=== PATIENT | female | born 1945 | race Caucasian/White ===

== ENCOUNTER 2024-12-23 10:40 | Outpatient (AMB) | payer MEDICARE, OTHER, SELFPAY ==
--- NOTE | 2024-12-23 10:50 | MHC.OFFVIS ---
Intake Visit Reasons: 2m Allergies No Known Allergies Allergy (Verified 12/16/24 07:48) HPI Comments Details: 79 yo LH woman with a parkinsonian disorder, could be dementia with Lewy bodies (With no h/o psychiatric disease until 2021 when after surgery for endometriosis she developed depression and suicidal ideation and was admitted at [facility]. Around that time, her brother who she was close to. Now she was at home and living with her boyfriend who has known her for decades. She denied any problem with memory or bladder control. Apparently, her driving recently became erratic and he has curtailed her to drive. No recent hallucinations or delusions. No significant anxiety or paranoia type of features. Her clinical situation was not fluctuating on day by day basis. Her mood was depressed except when she was talking to her daughter.). She is presenting for medication management. She has difficulties with walking and hydration, possibly linked to her current medications. Historically, she has been treated for schizophrenia with Risperidone and for depression and anxiety with pharmacologic interventions including Duloxetine and Bupropion. Her motivation and energy levels reportedly remain low despite this treatment. The patient's psychiatrist has managed her medication regimen, which has been difficult for her to track and adjust independently due to a lack of communication with healthcare providers. The patient has a history of schizophrenia managed with Risperidone. She is currently stable, with no recent psychotic episodes. Her depressive symptoms are treated with Duloxetine and Bupropion, but her recent adjustment involves a reduced Duloxetine dose to improve energy levels and decrease fatigue. The patient is being treated for what might be essential tremor with Carbidopa-Levodopa, which she currently takes twice daily. [facility] Medical History (Updated 12/23/24 @ 10:52 by Stephane Bernard MD) Cerebral microvascular disease Review of Systems Const Details: - Musculoskeletal: Reports difficulty walking. - General: Reports decreased hydration. - Neurological: Reports prior hallucinations managed with medication; history of tremor. - Psychological: Reports decreased motivation; on medication for mood and anxiety. - Gastrointestinal, Cardiovascular, Respiratory, Genitourinary, Dermatological, Endocrine, Hematologic/Lymphatic, Immunological: Not discussed. Physical Exam Neuro Other: Alert and awake with normal spontaneity of speech fluency comprehension and flat affect. There was mild left hand resting tremor. There was mild generalized bradykinesia. Walking is slow and slightly cautious. Speech is normal. Assessment & Plan Assessment & Plan (1) Parkinsonism: Comment: MRI brain WWO at [facility] in Apr 2024: Mild diff atrophy, mild MVD Code(s): G20.C - Parkinsonism, unspecified Category: Medical Qualifiers: Parkinsonism type: secondary Parkinsonism Secondary Parkinsonism type: unspecified secondary Qualified Code(s): G21.9 - Secondary parkinsonism, unspecified Plan Impression: Parkinsonism with behavioral symptoms suggestive of probably Lewy body pathology Rec: a: Decrease duloxetine to 60mg one at night b: Buproprion 75mg one in am c: Carbidopa/levodopa 25/100 one in am and noontime d: Decreae risperidone to half of 1mg tab at night Coding Level of Care Code Est Pt Level 4 (21690) Diagnoses Secondary parkinsonism, unspecified secondary Parkinsonism type G21.9 Parkinsonism type: secondary Parkinsonism Secondary Parkinsonism type: unspecified secondary
--- OUTSIDE RECORDS SUMMARY | 2024-12-23 12:11 | XMS_ITS | Clinical Summary ---
Author Organization [address] [facility] Address [address] [place] [address] Phone Care Team Providers Care Wirer Helper Name Role Phone MagdiElio Primary Care Provider [phone] Social History Tobacco Use Types Packs/Day Years Used Date Smoking Tobacco: Never Assessed Comments Unknown Sex and Gender Information Value Date Recorded Sex Assigned at Not on file Legal Sex Female 3:28 AM EST Gender Identity Not on file Sexual Orientation Not on file Plan of Treatment Health Maintenance Due Date Last Done Comments DTaP,Tdap,and Td Vaccines (1 - Tdap) 1965 Pneumococcal Vaccine: 50+ Years (1 of 1 - PCV) 1996 Zoster Vaccines (1 of 2) 1996 RSV Immunization Adult Patients (1 - 1-dose 75+ series) 2021 Falls Risk Assessment 04/07/2022 Hepatitis C Screening 04/07/2022 Medicare Annual Wellness Visit 04/07/2022 Osteoporosis Screening (Bone Density Screening) 04/07/2022 Social Influencers of Health Screening 04/07/2022 COVID-19 Vaccine (2 - 2023-2 5 season) 2024 04/14/2021 Depression Screening 05/05/2024 Influenza Vaccine (#1) 2025 , 04/10/2023, 03/08/2022 Hypertension/CHF/CAD Annual BMP Blood Test 11/23/2025 11/23/2024, 03/23/2024 Cholesterol Screening (Lipid Panel) 11/23/2029 11/23/2024, 03/23/2024 HIB Vaccines Aged Out No longer eligi ble based on patient's age to complete this topic HPV Vaccines Aged Out No longer eligi ble based on patient's age to complete this topic Hepatitis A Vaccines Aged Out No long er eligible based on patient's age to complete this topic Hepatitis B Vaccines Aged Out No long er eligible based on patient's age to complete this topic IPV Vaccines Aged Out No longer eligi ble based on patient's age to complete this topic MMR Vaccines Aged Out No longer eligi ble based on patient's age to complete this topic Meningococcal ACWY Vaccine Aged Out N o longer eligible based on patient's age to complete this topic Meningococcal B Vaccine Aged Out No l onger eligible based on patient's age to complete this topic RSV Immunization Patients Under 20 months Aged Out No longer eligible b ased on patient's age to complete this topic Varicella Vaccines Aged Out No longer eligible based on patient's age to complete this topic Procedures Procedure Name Priority Date/Time Associated Diagnosis Comments CBC WITH AUTO DIFFERENTIAL Routine 11/23/2024 2:53 PM EDT Hyperlipemia Orthostasis COMPREHENSIVE METABOLIC PANEL Routine 11/23/2024 2:53 PM EDT Hyperlipemia Orthostasis CBC AND DIFFERENTIAL Routine 11/23/2024 2:53 PM EDT Hyperlipemia Orthostasis THYROID STIMULATING HORMONE Routine 11/23/2024 2:53 PM EDT Hyperlipemia Orthostasis CREATINE KINASE Routine 11/23/2024 2:53 PM EDT Hyperlipemia Orthostasis LIPID PANEL WITH REFLEX TO DIRECT LDL Routine 11/23/2024 2:53 PM EDT Hyperlipemia Orthostasis from Last 3 Months Results * Lipid panel with reflex to direct LDL (11/23/2024 2:53 PM EDT) Cholesterol 141 0 - 200 mg/dL LAB CHEMISTRY METHOD 11/23/2024 7:40 PM EDT [facility] Triglycerides 113 0 - 150 mg/dL LAB CHEMISTRY METHOD 11/23/2024 7:40 PM EDT [facility] HDL 51 >=40 mg/dL LAB CHEMISTRY METHOD 11/23/2024 7:40 PM EDT [facility] LDL Calculated 67 0 - 100 mg/dL LAB CHEMISTRY METHOD 11/23/2024 7:40 PM EDT [facility] VLDL Cholesterol Gerardo 22.6 mg/dL LAB CHEMISTRY METHOD 11/23/2024 7:40 PM EDT [facility] Non HDL Chol. (LDL+VLDL) 90 <145 mg/dL LAB CHEMISTRY METHOD 11/23/2024 7:40 PM EDT [facility] Chol/HDL Ratio 2.8 0.0 - 4.4 LAB CHEMISTRY METHOD 11/23/2024 7:40 PM EDT [facility] Blood Venous blood specimen / Unknown Venipuncture / Unknown 11/23/2024 2:53 PM EDT 11/23/2024 2:53 PM EDT Verito Jo INSTALLATION TECHNICIAN LAB BLOOD ORDERABLES Fi nal Result [facility] [address] [place] [address], * (ABNORMAL) CBC auto differential (11/23/2024 2:53 PM EDT) WBC 6.8 4.8 - 10.8 K/mcL LAB HEMETOLOGY METHOD 11/23/2024 7:44 PM EDT [facility] RBC 3.80 3.80 - 4.80 M/mcL LAB HEMETOLOGY METHOD 11/23/2024 7:44 PM EDT [facility] Hemoglobin 11.9 11.5 - 16.0 g/dL LAB HEMETOLOGY METHOD 11/23/2024 7:44 PM EDT [facility] Hematocrit 37.2 35.0 - 47.0 % LAB HEMETOLOGY METHOD 11/23/2024 7:44 PM EDT [facility] MCV 98.9(H) 79.0 - 98.0 FL LAB HEMETOLOGY METHOD 11/23/2024 7:44 PM EDT [facility] MCH 31.6 27.0 - 32.0 pcg LAB HEMETOLOGY METHOD 11/23/2024 7:44 PM EDT [facility] MCHC 32.0 32.0 - 37.0 g/dL LAB HEMETOLOGY METHOD 11/23/2024 7:44 PM EDT [facility] RDW 12.9 11.0 - 15.0 % LAB HEMETOLOGY METHOD 11/23/2024 7:44 PM EDT [facility] Platelets 273 130 - 400 K/mcL LAB [facility]OLOGY [facility] MPV 8.9 7.0 - 11.0 FL LAB HEMETOLOGY METHOD 11/23/2024 7:44 PM EDT [facility] NRBC 0.0 <1.0 % LAB HEMETOLOGY METHOD 11/23/2024 7:44 PM EDT [facility] NRBC Absolute 0.00 <0.10 K/mcL LAB HEMETOLOGY METHOD 11/23/2024 7:44 PM [facility] Neutrophils Relative 69.0 % LAB HEMETOLOGY METHOD 11/23/2024 7:44 PM EDT [facility] Lymphocytes Relative 24.6 % LAB [facility]EMETOLOGY METHOD [facility]/23[facility]24 [facility] Monocytes Relative 4.9 % LAB [facility]EMETOLOGY METHOD 11/23[facility]2024 7[facility] Eosinophils Relative 0.9 % LAB HEMETOLOGY METHOD 11/23/2024 7:44 PM [facility] Basophils Relative 0.3 % LAB HEMETOLOGY METHOD 11/23/2024 7:44 PM EDT [facility] Immature Granulocytes Relative 0.3 % LAB HEMETOLOGY METHOD 11/23/2024 7:44 PM EDT [facility] Neutrophils Absolute 4.66 1.50 - 7.00 K/[facility] LAB HEMETOLOGY METHOD 11/23/2024 7:44 PM EDT [facility] Lymphocytes Absolute 1.66 1.00 - 5.00 K/mcL LAB HEMETOLOGY METHOD 11/23/2024 7:44 PM EDT [facility] Monocytes Absolute 0.33 0.20 - 1.00 K/mcL LAB HEMETOLOGY METHOD 11/23/2024 7:44 PM EDT [facility] Eosinophils Absolute 0.06 0.00 - 0.50 K/[facility] LAB HEMETOLOGY METHOD 11/23/2024 7:44 PM EDT [facility] Basophils Absolute 0.02 0.00 - 0.20 K/mcL LAB HEMETOLOGY METHOD 11/23/2024 7:44 PM EDT [facility] Immature Granulocytes Absolute 0.02 0.00 - 0.03 K/mcL LAB HEMETOLOGY METHOD 11/23/2024 7:44 PM EDT [facility] Blood Venous blood specimen / Unknown Venipuncture / Unknown 11/23/2024 2:53 PM EDT 11/23/2024 2:53 PM EDT us Verito Jo NP LAB BLOOD ORDERABLES Fi nal Result [facility] [address] [place] [address], * Thyroid stimulating hormone (11/23/2024 2:53 PM EDT) TSH 2.24 0.40 - 4.00 mcIU/mL LAB CHEMISTRY METHOD 11/23/2024 8:17 PM EDT [facility] Blood Venous blood specimen / Unknown Venipuncture / Unknown 11/23/2024 2:53 PM EDT 11/23/2024 2:53 PM EDT Verito Jo INSTALLATION TECHNICIAN LAB BLOOD ORDERABLES Fi nal Result [facility] [address] [place] [address], [place] [phone] * Creatine kinase (11/23/2024 2:53 PM EDT) Pathologist [facility] Total CK 61 22 - 269 unit/L LAB CHEMISTRY METHOD 11/23/2024 7:40 PM EDT [facility] Blood Venous blood specimen / Unknown Venipuncture / Unknown 11/23/2024 2:53 PM EDT 11/23/2024 2:53 PM EDT Verito Jo INSTALLATION TECHNICIAN LAB BLOOD ORDERABLES Fi nal Result Performing Organization Address City/[facility]/ZIP Co de Phone Number [facility] [address] [place] [address], [place] [phone] * (ABNORMAL) Comprehensive metabolic panel (11/23/2024 2:53 PM EDT) Pathologist [facility] Sodium 138 133 - 145 mmol/L LAB CHEMISTRY METHOD 11/23/2024 7:40 PM EDT [facility] Potassium 4.2 3.5 - 5.5 mmol/L LAB CHEMISTRY METHOD 11/23/2024 7:40 PM EDT [facility] Chloride 103 96 - 110 mmol/L LAB CHEMISTRY METHOD 11/23/2024 7:40 PM EDT [facility] CO2 32 21 - 32 mmol/L LAB CHEMISTRY METHOD 11/23/2024 7:40 PM EDT [facility] Anion Gap 3 3 - 11 LAB CHEMISTRY METHOD 11/23/2024 7:40 PM [facility] Glucose 101(H) 70 - 100 mg/dL LAB CHEMISTRY METHOD 11/23/2024 7:40 PM [facility] BUN 15 5 - 25 mg/dL LAB CHEMISTRY METHOD 11/23/2024 7:40 PM [facility] Creatinine 0.80 0.50 - 1.10 mg/dL LAB CHEMISTRY METHOD 11/23/2024 7:40 PM [facility] eGFR 76 >=60 mL/min/1. 73m2 LAB CHEMISTRY METHOD 11/23/2024 7:40 PM [facility] Comment:Calculation based on the Chronic Kidney Disease Epidemiology Collaboration (CKD-EPI) equation refit without adjustment for race. BUN/Creatinine Ratio 18.8 LAB CHEMISTRY METHOD 11/23/2024 7:40 PM [facility] Calcium 9.1 8.5 - 10.5 mg/dL LAB CHEMISTRY METHOD 11/23/2024 7:40 PM [facility] AST (SGOT) 8(L) 10 - 42 unit/L LAB CHEMISTRY METHOD 11/23/2024 7:40 PM [facility] ALT (SGPT) 12 10 - 60 unit/L LAB CHEMISTRY METHOD 11/23/2024 7:40 PM [facility] Alkaline Phosphatase 63 42 - 121 unit/L LAB CHEMISTRY METHOD 11/23/2024 7:40 PM [facility] Total Protein 6.1 6.0 - 8.0 g/dL LAB CHEMISTRY METHOD 11/23/2024 7:40 PM [facility] Albumin 3.8 3.2 - 5.0 g/dL LAB CHEMISTRY METHOD 11/23/2024 7:40 PM [facility] Total Bilirubin 0.3 0.0 - 1.4 mg/dL LAB CHEMISTRY METHOD 11/23/2024 7:40 PM EDT [facility] Blood Venous blood specimen / Unknown Venipuncture / Unknown 11/23/2024 2:53 PM EDT 11/23/2024 2:53 PM EDT us Verito Jo INSTALLATION TECHNICIAN LAB BLOOD ORDERABLES Fi nal Result [facility] [address] [place] [address], from Last 3 Months Insurance MEDICARE [facility] JOANA MCFADDEN [id number] Care Teams Wirer Helper Relationship Specialty Start Date End Date Elio Fairbanks DO [address] [place] [phone] PCP - General Internal Medicine 05/25/18
--- OUTSIDE RECORDS SUMMARY | 2024-12-23 12:11 | XMS_ITS | Clinical Summary ---
Author Organization [facility] Address [address] [place] [address] Care Team Providers Care Jordan Man Name Role Phone Elio Fairbanks DO Primary Care Provider [phone] Social History Tobacco Use Types Packs/Day Years Used Date Smoking Tobacco: Never Assessed Sex and Gender Information Value Date Recorded Sex Assigned at Not on file Gender Identity Not on file Sexual Orientation Not on file Plan of Treatment Health Maintenance Due Date Last Done Comments Hepatitis C Screening 1945 COVID-19 Vaccine (#1) 06/05/1946 Depression Screening 1958 Preventative Health Evaluation 1964 DTap / Tdap / Td (1 - Tdap) 1965 Shingrix-Zoster Vaccine (1 of 2) 1996 Fall Risk Assessment 12/04/2011 Osteoporosis Screening (DEXA Scan) 12/04/2011 Pneumococcal Vaccine (1 of 1 - PCV) 12/04/2011 RSV Adult > 60+ Yrs or Pregn ant (1 - 1-dose 75+ series) 2021 Influenza Vaccine (#1) 2025 Hepatitis B Vaccines Aged Out No long er eligible based on patient's age to complete this topic RSV Ped < 20 months Aged Out No longe r eligible based on patient's age to complete this topic Care Teams Jordan Man Relationship Specialty Start Date End Date Elio Fairbanks DO [address] [place] [id number] PCP - General Internal Medicine 04/11/20
== END 2024-12-23 11:05 | disposition home or self-care (01) ==
LOC: HO.HSM 10:40
PROVIDERS: PCP Internal Medicine; Referring Provider Internal Medicine; Visit Provider Psychiatry & Neurology Neurology
DX: G21.9 Secondary parkinsonism, unspecified (principal)
CPT/HCPCS: 99214

== ENCOUNTER → 2024-12-23 10:40 | Outpatient (BNVA) | payer MEDICARE, OTHER, SELFPAY | PROVIDERS: PCP Internal Medicine; Referring Provider Internal Medicine; Visit Provider Psychiatry & Neurology Neurology | DX: G21.9 Secondary parkinsonism, unspecified (principal); Z79.899 Other long term (current) drug therapy | CPT/HCPCS: 99212 ==

== ENCOUNTER 2025-01-17 11:08 | Outpatient (AMB) | payer MEDICARE, OTHER, SELFPAY ==
--- NOTE | 2025-01-17 11:25 | A.OFFVIS_ITS ---
Intake Visit Reasons: MED REVIEW Allergies No Known Allergies Allergy (Verified 12/16/24 07:48) HPI Comments Details: 79 yo LH woman with a parkinsonian disorder, could be dementia with Lewy bodies (With no h/o psychiatric disease until 2021 when after surgery for endometriosis she developed depression and suicidal ideation and was admitted at [facility]. Around that time, her brother who she was close to. Now she was at home and living with her boyfriend who has known her for decades. She denied any problem with memory or bladder control. Apparently, her driving recently became erratic and he has curtailed her to drive. No recent hallucinations or delusions. No significant anxiety or paranoia type of features. Her clinical situation was not fluctuating on day by day basis. Her mood was depressed except when she was talking to her daughter.). The depression has persisted despite ongoing medication with bupropion and risperidone. The condition has led to a notable decrease in daily activity and motivation. She primarily manages her depression through telephone consultations with her psychiatrist. Additionally, the patient has a history of Parkinson's Disease, managed with carbidopa-levodopa. The current treatment regimen focuses on managing depressive symptoms and Parkinson's-related issues. She wanted me to take care for depression [place] of going to psychiatrist. [facility] Medical History (Updated 12/23/24 @ 10:52 by Stephane Bernard MD) Cerebral microvascular disease Review of Systems Const Details: - Psychiatric: Reports feeling severely depressed, decreased motivation. - Neurologic: Reports ongoing management of Parkinson?s Disease. - Musculoskeletal: Reports decreased activity levels. Physical Exam Neuro Other: She is alert and awake with normal spontaneity of speech fluency comprehension and flat affect. Gait is cautious Assessment & Plan Assessment & Plan (1) Parkinsonism: Comment: MRI brain WWO at [facility] in Apr 2024: Mild diff atrophy, mild MVD Code(s): G20.C - Parkinsonism, unspecified Category: Medical Qualifiers: Parkinsonism type: secondary Parkinsonism Secondary Parkinsonism type: unspecified secondary Qualified Code(s): G21.9 - Secondary parkinsonism, unspecified Plan Impression: Parkinsonism with behavioral symptoms suggestive of probably Lewy body pathology Rec: a: Duloxetine to 60mg one at night b: Buproprion 150 ER one in am c: Carbidopa/levodopa 25/100 one at 7am, 11am, and 3pm d: Risperidone 0.5 mg 1 at bedtime Medications: New bupropion HCl XL (Wellbutrin XL) 150 mg PO DAILY 90 tabs 0RF risperidone 0.5 mg PO BEDTIME 90 tabs 0RF Changed From carbidopa-levodopa 25-100 mg (Sinemet) 1 tab PO BID 180 tabs 0RF To carbidopa-levodopa 25-100 mg (Sinemet) 1 tab PO TID 270 tabs 0RF From duloxetine 60 mg PO BID To duloxetine 60 mg PO ONCE 90 caps 0RF Discontinued risperidone Discontinued Reason: Doctor's Order 1 mg PO BEDTIME 90 tabs 0RF Coding Level of Care Code Est Pt Level 4 (04405) Diagnoses Secondary parkinsonism, unspecified secondary Parkinsonism type G21.9 Parkinsonism type: secondary Parkinsonism Secondary Parkinsonism type: unspecified secondary
--- OUTSIDE RECORDS SUMMARY | 2025-01-17 14:52 | XMS_ITS | Clinical Summary ---
Author Organization [facility] Address [address] [place] [address] Phone Care Team Providers Care Electronics Warfare Technician Name Role Phone Magdi Eliocristobal KELSEY Primary Care Provider [phone] Social History Tobacco Use Types Packs/Day Years [...] 04/07/2022 Social Influencers of Health Screening 04/07/2022 Depression Screening 05/05/2024 COVID-19 Vaccine (2 - 2024-2 6 season) 2025 04/14/2021 Influenza Vaccine (#1) 2025 , 04/10/2023, 03/08/2022 [...] LAB CHEMISTRY METHOD 11/23/2024 7:40 PM EDT [facility] Triglycerides 113 0 - 150 mg/dL LAB CHEMISTRY METHOD 11/23/2024 7:40 PM EDT [facility] HDL 51 >=40 mg/dL LAB CHEMISTRY METHOD 11/23/2024 7:40 PM EDT [facility] LDL Calculated 67 0 - 100 mg/dL LAB CHEMISTRY METHOD 11/23/2024 7:40 PM EDT [facility] VLDL Cholesterol Gerardo 22.6 mg/dL LAB CHEMISTRY METHOD 11/23/2024 7:40 PM EDT [facility] Non HDL Chol. (LDL+VLDL) 90 <145 mg/dL LAB CHEMISTRY METHOD 11/23/2024 7:40 PM EDT [facility] Chol/HDL Ratio 2.8 0.0 - 4.4 LAB CHEMISTRY METHOD 11/23/2024 7:40 PM EDT [facility] Blood Venous blood specimen / Unknown Venipuncture / Unknown 11/23/2024 2:53 PM EDT 11/23/2024 2:53 PM EDT Verito Jo ELECTRIC POWER SUPERINTENDENT LAB BLOOD ORDERABLES Fi nal Result [facility] [address] [place] [address], * (ABNORMAL) CBC auto differential (11/23/2024 2:53 PM EDT) WBC 6.8 4.8 - 10.8 K/mcL LAB HEMETOLOGY METHOD 11/23/2024 7:44 PM EDT [facility] RBC 3.80 3.80 - 4.80 M/mcL LAB HEMETOLOGY METHOD 11/23/2024 7:44 PM EDT [facility] Hemoglobin 11.9 11.5 - 16.0 g/dL LAB HEMETOLOGY METHOD 11/23/2024 7:44 PM EDT [facility] Hematocrit 37.2 35.0 - 47.0 % LAB HEMETOLOGY METHOD 11/23/2024 7:44 PM EDT [facility] MCV 98.9(H) 79.0 - 98.0 FL LAB HEMETOLOGY METHOD 11/23/2024 7:44 PM EDT [facility] MCH 31.6 27.0 - 32.0 pcg LAB HEMETOLOGY METHOD 11/23/2024 7:44 PM EDT [facility] MCHC 32.0 32.0 - 37.0 g/dL LAB HEMETOLOGY METHOD 11/23/2024 7:44 PM EDT [facility] RDW 12.9 11.0 - 15.0 % LAB HEMETOLOGY METHOD 11/23/2024 7:44 PM EDT [facility] Platelets 273 130 - 400 K/mcL LAB [facility] MPV 8.9 7.0 - 11.0 FL LAB HEMETOLOGY METHOD 11/23/2024 7:44 PM EDT [facility] NRBC 0.0 <1.0 % LAB HEMETOLOGY METHOD 11/23/2024 7:44 PM EDT [facility] NRBC Absolute 0.00 <0.10 K/mcL LAB HEMETOLOGY METHOD 11/23/2024 7:44 PM [facility] Neutrophils Relative 69.0 % LAB HEMETOLOGY METHOD 11/23/2024 7:44 PM EDT [facility] Lymphocytes Relative 24.6 % LAB [facility]OLOGY [facility] Monocytes Relative 4.9 % LAB [facility]EMETOLOGY [facility] Eosinophils Relative 0.9 % LAB HEMETOLOGY METHOD 11/23/2024 7:44 PM [facility] Basophils Relative 0.3 % LAB HEMETOLOGY METHOD 11/23/2024 7:44 PM EDT [facility] Immature Granulocytes Relative 0.3 % LAB HEMETOLOGY METHOD 11/23/2024 7:44 PM EDT [facility] Neutrophils Absolute 4.66 1.50 - 7.00 [facility] HEMETOLOGY METHOD 11/23/2024 7:44 PM EDT [facility] Lymphocytes Absolute 1.66 1.00 - 5.00 K/mcL LAB HEMETOLOGY METHOD 11/23/2024 7:44 PM EDT [facility] Monocytes Absolute 0.33 0.20 - 1.00 K/mcL LAB HEMETOLOGY METHOD 11/23/2024 7:44 PM EDT [facility] Eosinophils Absolute 0.06 0.00 - 0.50 [facility] HEMETOLOGY METHOD 11/23/2024 7:44 PM EDT [facility] Basophils Absolute 0.02 0.00 - 0.20 K/mcL LAB HEMETOLOGY METHOD 11/23/2024 7:44 PM EDT [facility] Immature Granulocytes Absolute 0.02 0.00 - 0.03 K/mcL LAB HEMETOLOGY METHOD 11/23/2024 7:44 PM EDT [facility] Blood Venous blood specimen / Unknown Venipuncture / Unknown 11/23/2024 2:53 PM EDT 11/23/2024 2:53 PM EDT us Verito Jo NP LAB BLOOD ORDERABLES Fi nal Result [facility] [address] [place] [address], * Thyroid stimulating hormone (11/23/2024 2:53 PM EDT) TSH 2.24 0.40 - 4.00 mcIU/mL LAB CHEMISTRY METHOD 11/23/2024 8:17 PM EDT [facility] Blood Venous blood specimen / Unknown Venipuncture / Unknown 11/23/2024 2:53 PM EDT 11/23/2024 2:53 PM EDT Verito Jo ELECTRIC POWER SUPERINTENDENT LAB BLOOD ORDERABLES Fi nal Result [facility] [address] [place] [address], [place] [phone] * Creatine kinase (11/23/2024 2:53 PM EDT) Pathologist [facility] Total CK 61 22 - 269 unit/L LAB CHEMISTRY METHOD 11/23/2024 7:40 PM EDT [facility] Blood Venous blood specimen / Unknown Venipuncture / Unknown 11/23/2024 2:53 PM EDT 11/23/2024 2:53 PM EDT Verito Jo ELECTRIC POWER SUPERINTENDENT LAB BLOOD ORDERABLES Fi nal Result Performing Organization Address City/[facility]/ZIP Co de Phone Number [facility] [address] [place] [address], [place] [phone] * (ABNORMAL) Comprehensive metabolic panel (11/23/2024 2:53 PM EDT) Pathologist [facility] Sodium 138 133 - 145 mmol/L LAB CHEMISTRY METHOD 11/23/2024 7:40 PM EDT [facility] Potassium 4.2 3.5 - 5.5 mmol/L LAB CHEMISTRY METHOD 11/23/2024 7:40 PM EDT [facility] Chloride 103 96 - 110 mmol/L LAB CHEMISTRY METHOD 11/23/2024 7:40 PM EDT [facility] CO2 32 21 - 32 mmol/L LAB CHEMISTRY METHOD 11/23/2024 7:40 PM EDT [facility] Anion Gap 3 3 - 11 LAB CHEMISTRY METHOD 11/23/2024 7:40 PM [facility] Glucose 101(H) 70 - 100 mg/dL LAB CHEMISTRY METHOD 11/23/2024 7:40 PM [facility] BUN 15 5 - 25 mg/dL LAB CHEMISTRY METHOD 11/23/2024 7:40 PM [facility] Creatinine 0.80 0.50 - 1.10 mg/dL LAB CHEMISTRY METHOD 11/23/2024 7:40 PM [facility] eGFR 76 >=60 mL/min/1. 73m2 LAB CHEMISTRY METHOD 11/23/2024 7:40 PM [facility] Comment:Calculation based on the Chronic Kidney Disease Epidemiology Collaboration (CKD-EPI) equation refit without adjustment for race. BUN/Creatinine Ratio 18.8 LAB CHEMISTRY METHOD 11/23/2024 7:40 PM [facility] Calcium 9.1 8.5 - 10.5 mg/dL LAB CHEMISTRY METHOD 11/23/2024 7:40 PM [facility] AST (SGOT) 8(L) 10 - 42 unit/L LAB CHEMISTRY METHOD 11/23/2024 7:40 PM [facility] ALT (SGPT) 12 10 - 60 unit/L LAB CHEMISTRY METHOD 11/23/2024 7:40 PM [facility] Alkaline Phosphatase 63 42 - 121 unit/L LAB CHEMISTRY METHOD 11/23/2024 7:40 PM [facility] Total Protein 6.1 6.0 - 8.0 g/dL LAB CHEMISTRY METHOD 11/23/2024 7:40 PM [facility] Albumin 3.8 3.2 - 5.0 g/dL LAB CHEMISTRY METHOD 11/23/2024 7:40 PM [facility] Total Bilirubin 0.3 0.0 - 1.4 mg/dL LAB CHEMISTRY METHOD 11/23/2024 7:40 PM EDT [facility] Blood Venous blood specimen / Unknown Venipuncture / Unknown 11/23/2024 2:53 PM EDT 11/23/2024 2:53 PM EDT us Verito Jo ELECTRIC POWER SUPERINTENDENT LAB BLOOD ORDERABLES Fi nal Result [facility] [address] [place] [address], from Last 3 Months Insurance MEDICARE [facility] JOANA MCFADDEN [id number] Care Teams Electronics Warfare Technician Relationship Specialty Start Date End Date Elio Fairbanks DO [address] [place] [phone] PCP - General Internal Medicine 05/25/18
--- OUTSIDE RECORDS SUMMARY | 2025-01-17 14:52 | XMS_ITS | Clinical Summary ---
Author Organization [facility] Address [address] [place] [address] Care Team Providers Care Insurance Agency Owner Name Role Phone Elio Fairbanks DO Primary Care Provider Social History Tobacco Use Types Packs/Day Years [...] age to complete this topic Care Teams Insurance Agency Owner Relationship Specialty Start Date End Date Elio Fairbanks DO [address] [place] [phone] PCP - General Internal Medicine 04/11/20
== END 2025-01-17 11:39 | disposition home or self-care (01) ==
LOC: HO.HSM 11:08
PROVIDERS: PCP Internal Medicine; Visit Provider Psychiatry & Neurology Neurology
DX: G21.9 Secondary parkinsonism, unspecified (principal)
CPT/HCPCS: 99214

== ENCOUNTER → 2025-01-17 11:08 | Outpatient (BNVA) | payer MEDICARE, OTHER, SELFPAY | PROVIDERS: PCP Internal Medicine; Visit Provider Psychiatry & Neurology Neurology | DX: F33.1 Major depressive disorder, recurrent, moderate (principal); G31.9 Degenerative disease of nervous system, unspecified; F03.A3 Unspecified dementia, mild, with mood disturbance | CPT/HCPCS: 99212 ==

== ENCOUNTER 2025-04-13 11:00 | Outpatient (AMB) | payer MEDICARE, OTHER, SELFPAY ==
--- NOTE | 2025-04-13 11:06 | MHC.OFFVIS ---
Intake Visit Reasons: 3m lbd Allergies No Known Allergies Allergy (Verified 12/16/24 07:48) HPI Comments Details: 79 yo LH woman with a parkinsonian disorder, could be dementia with Lewy bodies (With no h/o psychiatric disease until 2021 when after surgery for endometriosis she developed depression and suicidal ideation and was admitted at [facility]. Around that time, her brother who she was close to. Now she was at home and living with her boyfriend who has known her for decades. She denied any problem with memory or bladder control. Apparently, her driving recently became erratic and he has curtailed her to drive. No recent hallucinations or delusions. No significant anxiety or paranoia type of features. Her clinical situation was not fluctuating on day by day basis. Her mood was depressed except when she was talking to her daughter.). She is presenting for management of depression. She reports feeling very depressed and feels she is stuck, sitting in a chair all day and staring into space. She expresses frustration that her performs the household cleaning, believing he thinks she cannot do a good enough job. The patient has a history of Parkinson's disease. Her current medications include bupropion for depression, prescribed by her psychiatrist whom she sees next on May 06, and duloxetine 60 mg, which is also for depression or anxiety as she denies any history of fibromyalgia or other body pain. She also takes risperidone 0.5 mg at bedtime and carbidopa/levodopa four times a day at 7 a.m., 11 a.m., 3 p.m., and 7 p.m. [facility] Medical History (Updated 12/23/24 @ 10:52 by Stephane Bernard MD) Cerebral microvascular disease Review of Systems Narrative - General: Reports feeling not good. - Psychiatric: Reports feeling very depressed and stuck, with associated apathy described as sitting in a chair all day staring into space. - Denies hallucinations. Physical Exam Neuro Other: Mental Status: Alert and oriented to person, place, and time. Normal attention. Normal spontaneous speech, fluency, and comprehension. Cranial Nerves: CN II: Visual roach full to confrontation, visual acuity intact. CN III, IV, : Pupils equal, round, reactive to light and accommodation. Extraocular movements are normal. CN V: Facial sensation is normal. CN VII: Facial movements symmetrical. CN VIII: Hearing intact to bedside conversation is normal. CN IX, X: Palate elevates symmetrically. CN XI: Shoulder shrug and head turn symmetrical. CN XII: Tongue midline without atrophy or fasciculations. Extrapyramidal: Full facial expressions and blinking. No rigidity. Movements are appropriate with no tremor or abnormality. Speech: Normal; no dysarthria or tremor. 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 I explained the decision to stop her duloxetine and risperidone and initiate Rexulti, which addresses the functions of both medications. I detailed the plan to start Rexulti at a low dose of 0.25 mg and titrate upwards slowly to a target of 2 mg to ensure tolerability. I instructed the caregiver to call my office in one week to provide an update on any changes, noting that potential withdrawal effects from stopping medications may occur, and this feedback will guide how quickly we increase the new medication. We confirmed her carbidopa/levodopa schedule and planned for a follow-up visit in mid-May before her trip to [place]. Medications: New brexpiprazole (Rexulti) 0.25 mg PO DAILY 30 tabs 0RF Discontinued risperidone Discontinued Reason: Doctor's Order 0.5 mg PO BEDTIME 90 tabs 0RF duloxetine Discontinued Reason: Doctor's Order 60 mg PO ONCE 90 caps 0RF Coding Level of Care Code Est Pt Level 4 (86213) Diagnoses Secondary parkinsonism, unspecified secondary Parkinsonism type G21.9 Parkinsonism type: secondary Parkinsonism Secondary Parkinsonism type: unspecified secondary
== END 2025-04-13 11:24 | disposition home or self-care (01) ==
LOC: HO.HSM 11:01
PROVIDERS: PCP Internal Medicine; Visit Provider Psychiatry & Neurology Neurology
DX: G21.9 Secondary parkinsonism, unspecified (principal)
CPT/HCPCS: 99214

== ENCOUNTER → 2025-04-13 11:00 | Outpatient (BNVA) | payer MEDICARE, OTHER, SELFPAY | PROVIDERS: PCP Internal Medicine; Visit Provider Psychiatry & Neurology Neurology | DX: G21.9 Secondary parkinsonism, unspecified (principal) | CPT/HCPCS: 99212 ==